=== PATIENT | female | born 1960 | race African-American/Black ===

== ENCOUNTER 2016-07-15 16:19 | Observation (INO) | payer OTHER ==
[~2016-07-15] VITALS: Ht 172.7 cm; Wt 70.0 kg
[2016-07-15 16:21] VITALS: BP 173/104; PULSE 92; RESP 20; TEMP 97.7; O2SAT 96
--- NOTE | 2016-07-15 17:33 | PD ---
HPI Chief Complaint: Cold / Flu Symptoms Time Seen by Provider: 17:28 Travel History International Travel<30 days: No Contact w/Intl Traveler<30days: No Traveled to known affect area: No History of Present Illness HPI This Is a 55-year-old female with history of hypertension who presents for evaluation of dyspnea and cough. She reports that for the past month she has had increasing dyspnea on exertion and paroxysmal nocturnal dyspnea. Symptoms haven't worsened which prompted evaluation. She does endorse a cough with occasional sputum production and she feels that she may sometimes be wheezing as well. She reports that in the past and x-ray showed a "enlarged heart" however she has never been diagnosed with CHF and she has never had an echocardiogram. She denies any lower extremity edema, chest pain, fevers or chills, abdominal pain. She reports that she's been out of her lisinopril for the past few months. She has no other complaints. PFSH Past Medical History Cancer: No Cardiovascular Problems: Yes (possible enlarged heart) Diabetes: No Endocrine: No Genitourinary: No Hepatitis: No Hiatal Hernia: No Immune Disorder: No Musculoskeletal: No Neurologic: No Psychiatric: No Reproductive: No Respiratory: No Thyroid Disease: No Past Surgical History Abdominal Surgery: No AICD: No Cardiac Surgery: No Ear Surgery: No Endocrine Surgery: No Eye Surgery: No Genitourinary Surgery: No Gynecologic Surgery: Yes () Joint Replacement: No Oral Surgery: No Pacemaker: No Thoracic Surgery: No Social History Alcohol Use: Yes Tobacco Use: Yes Allergies-Medications (Allergen,Severity, Reaction): Coded Allergies: Sulfa (Verified Allergy, Severe, 07/15/16) Reported Meds & Prescriptions Reported Meds & Active Scripts Active No Active Prescriptions or Reported Medications Review of Systems Except as stated in HPI: all other systems reviewed are Neg Physical Exam Narrative GENERAL: Pleasant well-developed well-nourished female in no acute distress SKIN: Warm and dry. HEAD: Atraumatic. Normocephalic. EYES: Pupils equal and round. No scleral icterus. No injection or drainage. ENT: No nasal bleeding or discharge. Mucous membranes pink and moist. NECK: Trachea midline. No JVD. CARDIOVASCULAR: Regular rate and rhythm. No murmur appreciated. RESPIRATORY: No accessory muscle use. Slight wheezing in the upper airways. No crackles. GASTROINTESTINAL: Abdomen soft, non-tender, nondistended. Hepatic and splenic margins not palpable. MUSCULOSKELETAL: No obvious deformities. No edema. NEUROLOGICAL: Awake and alert. No obvious cranial nerve deficits. Motor grossly within normal limits. Normal speech. Data Data Last Documented VS Vital Signs Date Time Temp Pulse Resp B/P Pulse Ox O2 Delivery O2 Flow Rate FiO2 07/15/16 16:21 97.7 92 20 173/104 96 Room Air Orders Electrocardiogram (07/15/16 17:33) Basic Metabolic Panel (Bmp) (07/15/16 17:33) B-Type Natriuretic Peptide (07/15/16 17:33) Ckmb (Isoenzyme) Profile (07/15/16 17:33) Complete Blood Count With Diff (07/15/16 17:33) Magnesium (Mg) (07/15/16 17:33) Troponin I (07/15/16 17:33) Chest, Single Ap (07/15/16 17:33) Ecg Monitoring (07/15/16 17:33) Iv Access Insert/Monitor (07/15/16 17:33) Oximetry (07/15/16 17:33) Oxygen Administration (07/15/16 17:33) Sodium Chloride 0.9% Flush (Ns Flush) (07/15/16 17:45) Albuterol-Ipratropium Neb (Duoneb Neb) (07/15/16 17:45) Potassium Chloride (Kcl) (07/15/16 20:00) Labs Laboratory Tests Test 07/15/16 19:00 White Blood Count 4.0 TH/MM3 Red Blood Count 4.40 MIL/MM3 Hemoglobin 13.4 GM/DL Hematocrit 38.3 % Mean Corpuscular Volume 87.0 FL Mean Corpuscular Hemoglobin 30.3 PG Mean Corpuscular Hemoglobin 34.9 % Concent Red Cell Distribution Width 14.6 % Platelet Count 172 TH/MM3 Mean Platelet Volume 9.6 FL Neutrophils (%) (Auto) 54.8 % Lymphocytes (%) (Auto) 34.8 % Monocytes (%) (Auto) 8.8 % Eosinophils (%) (Auto) 0.7 % Basophils (%) (Auto) 0.9 % Neutrophils # (Auto) 2.2 TH/MM3 Lymphocytes # (Auto) 1.4 TH/MM3 Monocytes # (Auto) 0.4 TH/MM3 Eosinophils # (Auto) 0.0 TH/MM3 Basophils # (Auto) 0.0 TH/MM3 CBC Comment DIFF FINAL Differential Comment Sodium Level 141 MEQ/L Potassium Level 2.8 MEQ/L Chloride Level 100 MEQ/L Carbon Dioxide Level 30.8 MEQ/L Anion Gap 10 MEQ/L Blood Urea Nitrogen 14 MG/DL Creatinine 0.97 MG/DL Estimat Glomerular Filtration 72 ML/MIN Rate Random Glucose 104 MG/DL Calcium Level 8.7 MG/DL Magnesium Level 1.5 MG/DL Total Creatine Kinase 100 U/L Troponin I 0.02 NG/ML B-Type Natriuretic Peptide 556 PG/ML MDM Medical Decision Making Medical Screen Exam Complete: Yes Emergency Medical Condition: Yes Medical Record Reviewed: Yes Interpretation(s) Chest x-ray reveals cardiomegaly without acute process Differential Diagnosis New onset CHF versus bronchitis versus pneumonia versus pneumothorax versus COPD versus pulmonary embolism Narrative Course 55-year-old female hypertension presents with 1 month of progressive dyspnea on exertion, nocturnal dyspnea as well as a cough. Denies chest pain. On initial examination she has mild wheezing. She has no peripheral edema. Plan is for basic lab work, chest x-ray, EKG. Her lab work and imaging studies have been reviewed. Hypokalemic at 2.8, given oral potassium supplementation. The TAG MAKER elevated in the 500s suggestive of new onset CHF. Discussed with my attending who agrees with plan of care. Plan is to admit the patient for observation. Patient is agreeable. Discussed with Dr. Staples who is agreeable. Procedures EKG Prior to Arrival: Yes Diagnosis Primary Impression: FORD (dyspnea on exertion) Additional Impressions: Elevated brain natriuretic peptide (BNP) level Hypokalemia Admitting Information Admitting Physician Requests: Observation Scripts No Active Prescriptions or Reported Meds Toni Washburn Jul 15, 2016 17:33
[2016-07-15] MEDS ORDERED: RESP: ALBUTEROL 2.5 MG/IPRATROPIUM 0.5 MG NEB (SCH) INH ONE (17:45)
[2016-07-15] MEDS ORDERED: SODIUM CHLORIDE 0.9% FLUSH 5 ML FLUSH IVF PRN (17:45)
--- NOTE | 2016-07-15 18:14 | RADRPT ---
EXAM DATE/TIME: 07/15/2016 17:42 [facility] COMPARISON: No previous studies available for comparison. INDICATIONS : Short of breath. MEDICAL HISTORY : None. SURGICAL HISTORY : None. ENCOUNTER: Initial ACUITY: 1 month PAIN SCORE: 3/10 LOCATION: Bilateral chest FINDINGS: A single view of the chest demonstrates the lungs to be symmetrically aerated without evidence of mas s, infiltrate or effusion. The heart size is enlarged. Osseous structures are intact. CONCLUSION: Cardiomegaly Ortega Carrion MD on July 15, 2016 at 18:12 Board Certified Radiologist. This report was verified electronically.
[2016-07-15 19:15] LABS: AUTOMATED NEUTROPHIL # 2.2 TH/MM3 (1.8-7.7); BASOPHIL % 0.9 % (0.0-2.0); EOSINOPHIL % 0.7 % (0.0-4.0); HEMATOCRIT 38.3 % (35.0-46.0); HEMO FLAGS DIFF FINAL; LYMPH % 34.8 % (9.0-44.0); LYMPHOCYTE # 1.4 TH/MM3 (1.0-4.8); MEAN CORPUSCULAR HEMOGLOBIN 30.3 PG (27.0-34.0); MEAN CORPUSCULAR HGB CONC 34.9 % (32.0-36.0); MONO % 8.8 % (0.0-8.0); NEUT % 54.8 % (16.0-70.0); PLATELET COUNT 172 TH/MM3 (150-450); RED CELL DISTRIBUTION WIDTH 14.6 % (11.6-17.2)
[2016-07-15 19:41] LABS: BICARBONATE 30.8 MEQ/L (21.0-32.0); MAGNESIUM 1.5 MG/DL (1.5-2.5)
[2016-07-15 19:42] LABS: POTASSIUM 2.8 MEQ/L (3.5-5.1)
[2016-07-15] MEDS ORDERED: POTASSIUM CHLORIDE 10 MEQ CONTROLLED RELEASE TAB PO ONE (20:00)
[2016-07-15] MEDS ORDERED: ACETAMINOPHEN/HYDROcodone 325 MG/5 MG TAB PO PRN (21:30)
[2016-07-15] MEDS ORDERED: ACETAMINOPHEN 325 MG TAB PO PRN (21:30)
[2016-07-15] MEDS ORDERED: RESP: ALBUTEROL 2.5 MG/IPRATROPIUM 0.5 MG NEB (PRN) NEB (21:30)
[2016-07-15] MEDS ORDERED: ONDANSETRON HCL 4 MG/2 ML VIAL IVP PRN (21:30)
[2016-07-15] MEDS ORDERED: BISACODYL 10 MG SUPP PR PRN (21:30)
[2016-07-15] MEDS ORDERED: SODIUM CHLORIDE 0.9% FLUSH 5 ML FLUSH FLUSH PRN (21:30)
--- NOTE | 2016-07-15 21:38 | HHI.HP ---
HPI Service [facility] Primary Care Physician Unknown Admission Diagnosis dyspnea on exertion, elevated BNP Diagnoses: (1) CHF (congestive heart failure) Diagnosis: Principal (2) HTN (hypertension) Diagnosis: Principal (3) Hypokalemia Diagnosis: Principal (4) Tobacco abuse Diagnosis: Principal Travel History International Travel<30 Days: No Contact w/Intl Traveler <30 Da: No Traveled to Known Affected Are: No History of Present Illness This is a 55-year-old female with a PMH of HTN who presents to the ER with complaints of SOB and nonproductive cough x1 month. Denies fever, chills or chest pain. States she only takes Lisinopril at home, but has been off meds x3 months due to financial reasons. On arrival, BP 168/104, HR 95, O2 sat 98% on RA, Afebrile. CBC essentially unremarkable. K+ 2.8. GFR 72. BNP 556. CXR with cardiomegaly. S/p K+ replacement and DuoNeb w/ some improvement in SOB. Review of Systems Except as stated in HPI: all other systems reviewed are Neg ROS: 14 point review of systems otherwise negative. Past Family Social History Past Medical History PMH: HTN Past Surgical History PAST SURGICAL HISTORY: Allergies: Coded Allergies: Sulfa (Verified Allergy, Severe, 07/15/16) Family History PAST FAMILY HISTORY: Reviewed. No h/o DM or CAD Social History PAST SOCIAL HISTORY: Occasional alcohol. Positive for tobacco abuse. Negative for drugs. Physical Exam Vital Signs Vital Signs Date Time Temp Pulse Resp B/P Pulse Ox O2 Delivery O2 Flow Rate FiO2 07/15/16 16:21 97.7 92 20 173/104 96 Room Air Physical Exam PE: GENERAL: Middle-aged female in no acute distress. HEENT: PERRLA, EOMI. No scleral icterus or conjunctival pallor. No lid lag or facial droop. CARDIOVASCULAR: Regular rate and rhythm. No obvious murmurs to auscultation. No chest tenderness to palpation. RESPIRATORY: No obvious rhonchi, occasional wheezing otherwise clear to auscultation. Breath sounds equal bilaterally. GASTROINTESTINAL: Abdomen soft, non-tender, nondistended. BS normal. MUSCULOSKELETAL: Extremities without clubbing, cyanosis, or edema. No obvious deformities. NEUROLOGICAL: Awake, alert and oriented x4. No focal neurologic deficits. Moving both upper and lower extremities spontaneously. Laboratory Laboratory Tests Test 07/15/16 19:00 White Blood Count 4.0 Red Blood Count 4.40 Hemoglobin 13.4 Hematocrit 38.3 Mean Corpuscular Volume 87.0 Mean Corpuscular Hemoglobin 30.3 Mean Corpuscular Hemoglobin 34.9 Concent Red Cell Distribution Width 14.6 Platelet Count 172 Mean Platelet Volume 9.6 Neutrophils (%) (Auto) 54.8 Lymphocytes (%) (Auto) 34.8 Monocytes (%) (Auto) 8.8 Eosinophils (%) (Auto) 0.7 Basophils (%) (Auto) 0.9 Neutrophils # (Auto) 2.2 Lymphocytes # (Auto) 1.4 Monocytes # (Auto) 0.4 Eosinophils # (Auto) 0.0 Basophils # (Auto) 0.0 CBC Comment DIFF FINAL Differential Comment Sodium Level 141 Potassium Level 2.8 Chloride Level 100 Carbon Dioxide Level 30.8 Anion Gap 10 Blood Urea Nitrogen 14 Creatinine 0.97 Estimat Glomerular Filtration 72 Rate Random Glucose 104 Calcium Level 8.7 Magnesium Level 1.5 Total Creatine Kinase 100 Troponin I 0.02 B-Type Natriuretic Peptide 556 Result Diagram: 07/15/16189907/15/161899 Assessment and Plan Problem List: (1) CHF (congestive heart failure) ICD Code: I50.9 Status: Acute (2) Hypokalemia ICD Code: E87.6 Status: Acute (3) HTN (hypertension) ICD Code: I10 Status: Acute (4) Tobacco abuse ICD Code: Z72.0 Status: Acute Assessment and Plan A/P: 1. CHF: Suspected CHF, New Onset. BNP 556. CXR w/ cardiomegaly, images reviewed by me. No evidence of fluid overload on exam. Progressive SOB x1 month w/ associated non-productive cough. Initial trop negative, EKG w/ no acute findings. Admit for Observation, telemetry, check serial cardiac enzymes to eval for underlying ischemia. Check Echo. Start Lisinopril, B-sheldon, ASA , Statin. Check lipid profile, TSH, Hgb A1c. 2. Hypokalemia: K+ 2.8, s/p replacement in ER. Recheck labs and replace in am as needed. 3. HTN: BP 160-170's systolic on arrival, currently 130's systolic. Non- compliant w/ meds, off Lisinopril x3 months due to financial reasons. Monitor BP. 4. Tobacco Abuse: Counselled. Ativan prn if needed. 5. DVT Prophylaxis: SCD/Teds. 6. Social work for d/c planning as needed. 7. Case discussed w/ ER physician at length. Daylin Staples MD Jul 15, 2016 21:38
[2016-07-15 22:45] VITALS: BP 131/105; PULSE 88; RESP 20; O2SAT 96
[2016-07-15] MEDS: METOPROLOL TARTRATE 25 MG TAB PO SCH (22:46)
[2016-07-16] VITALS (9 sets, daily range): BP systolic 130–163; BP diastolic 80–102; PULSE 84–93; RESP 16–21; TEMP 97.7–98.8; O2SAT 92–99
[2016-07-16 04:30] LABS: AUTOMATED NEUTROPHIL # 2.2 TH/MM3 (1.8-7.7); BASOPHIL % 0.7 % (0.0-2.0); EOSINOPHIL # 0.1 TH/MM3 (0-0.4); EOSINOPHIL % 1.4 % (0.0-4.0); HEMATOCRIT 37.2 % (35.0-46.0); HEMO FLAGS DIFF FINAL; LYMPH % 26.9 % (9.0-44.0); MEAN CELL VOLUME 87.6 FL (80.0-100.0); MEAN CORPUSCULAR HEMOGLOBIN 30.3 PG (27.0-34.0); MEAN CORPUSCULAR HGB CONC 34.6 % (32.0-36.0); MONO % 10.5 % (0.0-8.0); NEUT % 60.5 % (16.0-70.0); PLATELET COUNT 168 TH/MM3 (150-450); RED BLOOD COUNT 4.25 MIL/MM3 (4.00-5.30); RED CELL DISTRIBUTION WIDTH 15.1 % (11.6-17.2); WHITE BLOOD COUNT 3.6 TH/MM3 (4.0-11.0)
[2016-07-16 04:37] LABS: ALT (GPT) 91 U/L (10-53); ANION GAP 8 MEQ/L (5-15); AST (GOT) 41 U/L (15-37); BICARBONATE 29.6 MEQ/L (21.0-32.0); BLOOD UREA NITROGEN 15 MG/DL (7-18); CHLORIDE 106 MEQ/L (98-107); GLOMERULAR FILTRATION RATE 76 ML/MIN (>89); POTASSIUM 3.1 MEQ/L (3.5-5.1); SODIUM (NA) 144 MEQ/L (136-145)
[2016-07-16 04:47] LABS: ALKALINE PHOSPHATASE 81 U/L (45-117); HDL CHOLESTEROL 47.4 MG/DL (40.0-60.0); LDL CHOLESTEROL 86 MG/DL (0-99); TOTAL BILIRUBIN ADULT 0.7 MG/DL (0.2-1.0)
[2016-07-16] MEDS ORDERED: POTASSIUM CHLORIDE 20 MEQ CONTROLLED RELEASE TAB PO ONE (08:00)
[2016-07-16] MEDS: MAGNESIUM SULFATE 1 GM PREMIX 100 ML IV SCH ×2 (08:33→13:01)
[2016-07-16] MEDS: ASPIRIN EC 81 MG TABEC PO SCH (08:34)
[2016-07-16] MEDS: LISINOPRIL 5 MG TAB PO SCH (08:34)
[2016-07-16] MEDS: SODIUM CHLORIDE 0.9% FLUSH 5 ML FLUSH FLUSH SCH ×2 (08:35→20:10)
[2016-07-16] MEDS ORDERED: FUROSEMIDE 20 MG TAB PO SCH (09:00)
[2016-07-16] MEDS ORDERED: PRAVASTATIN SOD 40 MG TAB PO SCH (09:00)
[2016-07-16] MEDS: METOPROLOL TARTRATE 25 MG TAB PO SCH ×2 (11:17→20:10)
--- NOTE | 2016-07-16 13:40 | EKG ---
Date Performed: 07/15/2016 Time Performed: 19:12:55 PTAGE: 55 years EKG: Sinus rhythm WITH FREQUENT VENTRICULAR PREMATURE COMPLEXES POSSIBLE RIGHT ATRIAL ENLARGEMENT LEFT ATRIAL ENLARGEM ENT LEFT ANTERIOR FASCICULAR BLOCK LEFT VENTRICULAR HYPERTROPHY AND ST-T CHANGE POSSIBLE ANTERIOR JASPAL CARDIAL INFARCTION RATE HAS INCREASED, OTHERWISE, LARGELY UNCHANGED FROM PRIOR TRACING CLINICAL CORRE LATION RECOMMENDED. ABNORMAL ECG PREVIOUS TRACING : 07/15/2016 14.24 DOCTOR: Nabil Avendano Interpretating Date/Time 07/16/2016 13:39:07
--- NOTE | 2016-07-16 13:46 | HHI.PR ---
Subjective Remarks Follow-up for probable new onset CHF. The patient states that for the past month she's been having symptoms of shortness of breath, worsening swelling, dyspnea on exertion, cough, orthopnea. She denies any chest pain. She does report about a 10 year history of uncontrolled hypertension. She states her blood pressure normally runs about 154/90. She had been on lisinopril, but actually ran medicine a few weeks ago. She denies any alcohol, tobacco, or illegal drug use. Symptoms have improved overnight since admission. Objective Vitals Vital Signs Date Time Temp Pulse Resp B/P Pulse Ox O2 Delivery O2 Flow Rate FiO2 07/16/16 11:29 88 20 130/84 96 07/16/16 08:32 98.1 88 20 163/102 95 Room Air 07/16/16 06:43 88 16 146/100 99 Room Air 07/16/16 03:10 91 18 137/95 97 Room Air 07/15/16 22:45 88 20 131/105 96 Room Air 07/15/16 16:21 97.7 92 20 173/104 96 Room Air Result Diagram: 07/16/16 0357 07/16/16 0357 Imaging Last Impressions Chest X-Ray 07/15/16 173 Signed Impressions: Service Date/Time: June 17:42 - CONCLUSION: Cardiomegaly Ortega Carrion MD Objective Remarks GENERAL: Well-developed well-nourished. In no acute distress. SKIN: Warm and dry. No lesions noted. HEENT: Normocephalic. Pupils equal and round. Mucous membranes pink and moist. CARDIOVASCULAR: Regular rate and rhythm. No murmur appreciated. RESPIRATORY: No accessory muscle use. Clear to auscultation. Fair air entry bilaterally. GASTROINTESTINAL: Abdomen soft, non-tender, nondistended. Bowel sounds x4. MUSCULOSKELETAL: No obvious deformities. No clubbing or cyanosis. No edema. NEUROLOGICAL: Awake and alert. No focal neurological deficits. Moves upper and lower extremities spontaneously. Normal speech. PSYCHIATRIC: Appropriate mood and affect; insight and judgment normal. A/P Problem List: (1) CHF (congestive heart failure) ICD Code: I50.9 Status: Acute (2) Hypokalemia ICD Code: E87.6 Status: Acute (3) HTN (hypertension) ICD Code: I10 Status: Acute (4) Tobacco abuse ICD Code: Z72.0 Status: Acute Assessment and Plan 55-year-old female with a PMH of HTN who presents with progressive SOB Suspected new onset CHF: No prior history. BNP 556, 724. CXR w/ cardiomegaly, no definite edema, personally reviewed. Troponin negative 3. EKG w/ no acute findings. Check echocardiogram. Start Lasix 20 mg daily. Started overnight on Lisinopril, B-sheldon, ASA. Cardiology consulted. Lipid profile within normal limits. Hypokalemia: K+ 2.8, s/p oral replacement in the ED. Test remains 3.1 today, given additional oral replacement. Magnesium 1.5 given IV replacement. Follow- up BMP. HTN: Uncontrolled. Non-compliant w/ meds, off Lisinopril x3 months due to financial reasons. Started lisinopril and metoprolol as above. Monitor BP. DVT Prophylaxis: SCD/Teds. Written by Emir Cruz, acting as scribe for Dr. Loja on 07/16/16 at 13:46. The documentation accurately reflects the work performed [id number] by me on at 13:46. Emir Cruz Jul 16, 2016 1:46 pm Carlos Loja DO Jul 16, 2016 3:40 pm
[2016-07-16 14:38] LABS: HEMOGLOBIN A1a 1.3 %; HEMOGLOBIN A1b 0.5 %; HEMOGLOBIN Ao 54.6 %; HEMOGLOBIN F 0.9 %; HEMOGLOBIN LA1C 1.1 %; HEMOGLOBIN P3 2.3 %
[2016-07-16] MEDS ORDERED: FUROSEMIDE 20 MG/2 ML VIAL IV PUSH ONE (16:30)
--- NOTE | 2016-07-16 16:41 | MB ---
cc: HERBERT ESTEVEZ DO DATE OF CONSULTATION: 07/16/2016. REASON FOR CONSULTATION: New onset congestive heart failure. HISTORY OF PRESENT ILLNESS: Olivia Galvez is a pleasant 55-year-old female who presented to the [facility] on July 15, 2016 due to shortness of breath with a nonproductive cough for one month. She denies fevers, chills or chest pain. She previously took lisinopril at home but has been off the medication for around three months due to financial reasons. She states that she has had known hypertension for least. She has had uncontrolled hypertension for least ten years. She has also noticed swelling in her legs since being diagnosed with hypertension. Lately she has been noticing dyspnea on exertion and some orthopnea. PAST MEDICAL HISTORY: Hypertension. PAST SURGICAL HISTORY: . ALLERGIES: SULFA. MEDICATIONS: Previously on lisinopril but it was stopped due to financial reasons. 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 Rarely uses alcohol. Denies drug abuse. Positive for tobacco use. FAMILY HISTORY: Denies premature coronary artery disease or sudden cardiac within the family. PHYSICAL EXAMINATION: VITAL SIGNS: Temperature 97.9, heart rate 89, blood pressure 130/80, respirations 16, pulse ox 94% on room air. GENERAL: In general, the patient appears well. No acute distress, alert, awake and oriented x3. HEAD, EYES, EARS, NOSE, THROAT: Extraocular muscles intact. Mucous membranes moist. NECK: Neck is supple. Mild JVD noted bilaterally. No carotid bruits noted bilaterally. Carotid upstroke is brisk in nature. HEART: Heart is regular rate and rhythm. Positive first and second heart sounds with no murmurs, gallops or rubs. PMI is displaced laterally. LUNGS: Lungs have decreased breath sounds bilaterally with mild rales at the bases. ABDOMEN: The abdomen is soft, nontender and nondistended. No organomegaly noted. EXTREMITIES: Show trace edema bilaterally. NEUROLOGIC: No focal deficits. SKIN: Warm, dry and intact. OSTEOPATHIC: Osteopathically no kyphoscoliosis, lordosis or paraspinal tender points. LABORATORY FINDINGS: Hemoglobin 12.9, hematocrit 37.2, platelets 168,000. Potassium 3.1, BUN 15, creatinine 0.92. Troponin negative x3. BNP 724. EKGS: Electrocardiogram (July 15, 2016 at 1912): Sinus rhythm, PVCs, possible right atrial enlargement, left atrial enlargement, left anterior fascicular block, left ventricular hypertrophy with secondary ST-T wave changes, possible anterior myocardial infarction versus lead placement versus normal variant. IMPRESSION: 1. New-onset acute heart failure. 2. Longstanding uncontrolled hypertension. 3. Tobacco abuse. RECOMMENDATIONS: 1. A 2-D echo is pending at this time but brief look at it shows that the patient has a decrease in her ejection fraction with acute systolic heart failure. 2. Due to this, we will plan on setting her up for a pharmacologic nuclear stress test in the morning. 3. I feel that her acute systolic heart failure is most likely due to dilated cardiomyopathy due to longstanding hypertension. 4. I did speak to her for greater than three minutes about tobacco cessation, which she is attempting to quit. 5. She does appear to need further diuresis and will plan on placing her on IV Lasix. We will most likely change her metoprolol tartrate to Toprol XL upon discharge. 6. Agree with continuing LISA inhibitor therapy. Further recommendations will be made after pharmacologic nuclear stress test in the morning. Thank you for allowing me to see Olivia Galvez. If there are any questions, please do not hesitate to call. Herbert Estevez DO VGP/JCC /4:09 PM /4:29 PM
--- NOTE | 2016-07-16 20:01 | EC ---
Study Study Date:07/16/2016 STUDY CONCLUSIONS SUMMARY - Left ventricle: The cavity size was mildly dilated. Wall thickness was increased in a pattern of mild LVH. There was concentric hypertrophy. Systolic function was moderately to severely reduced. The estimated ejection fraction was in the range of 35% to 40%. Diffuse hypokinesis. - Mitral valve: Moderate regurgitation. - Tricuspid valve: Mild regurgitation. - Pulmonic valve: Mild regurgitation. - Pulmonary arteries: PA peak pressure: 34mm Hg (S). If LV function is below 40, please consider prescribing an ACEI or ARB or document rationale for non-use. PROCEDURE DATA STUDY STATUS: Elective. Procedure: Transthoracic echocardiography. Image quality was good. Scanning was performed from the parasternal, apical, and subcostal acoustic windows. Study completion: The patient tolerated the procedure well. Transthoracic echocardiography. M-mode, complete 2D, complete spectral Doppler, and color Doppler. Height: Height: 68in. Weight: Weight: 153.7lb. Body mass index: BMI: 23.4kg/m^2. Body surface area: BSA: 1.83m^2. Patient status: Inpatient. CARDIAC ANATOMY LEFT VENTRICLE: The cavity size was mildly dilated. Wall thickness was increased in a pattern of mild LVH. There was concentric hypertrophy. Systolic function was moderately to severely reduced. The estimated ejection fraction was in the range of 35% to 40%. Diffuse hypokinesis. AORTIC VALVE: The valve appears to be grossly normal. Doppler: There was no stenosis. No significant regurgitation. Valve area: 4.06cm^2 (Vmax). Indexed valve area: 2.22cm^2/m^2 (Vmax). MITRAL VALVE: The valve appears to be grossly normal. Doppler: There was no evidence for stenosis. Moderate regurgitation. Peak gradient: 3mm Hg (D). LEFT ATRIUM: The atrium was at the upper limits of normal in size. RIGHT VENTRICLE: The cavity size was normal. PULMONIC VALVE: Poorly visualized. Doppler: There was no evidence for stenosis. Mild regurgitation. TRICUSPID VALVE: The valve appears to be grossly normal. Doppler: There was no evidence for stenosis. Mild regurgitation. PERICARDIUM: There was no pericardial effusion. Patient weight: 153.7lb _Ejection fraction:_ 65-75% _Fractional shortening:_ 32% up to 5Kg 5-11.5Kg 11.6-22.9Kg 23-45Kg 45-57Kg Aortic Root 7-13 <17 13-22 17-27 17-27 LA diam 6-13 <23 24-38 33-47 37-40 RVID 10-17 7-15 7-15 7-18 8-17 LVIDd 12-22 <32 24-38 33-47 37-40 LVPW 2-4 3-6 5-7 6-8 7-8 IVS 2-4 3-6 5-7 6-8 7-8 BASIC MEASUREMENTS ADULT NORMAL Left ventricle LV internal dimension, ED, chordal *59.4 mm 43-52 level, PLAX LV internal dimension, ES, chordal *49.4 mm 23-38 level, PLAX Fractional shortening, chordal level, *17 % >29 PLAX LV posterior wall thickness, ED 8.46 mm IVS/LVPW ratio, ED 0.97 <1.3 Ventricular septum Septal thickness, ED 8.22 mm Aortic valve Leaflet separation 15 mm 15-26 BASIC MEASUREMENTS ADULT NORMAL Aortic valve Leaflet separation 15 mm 15-26 Aorta Root diameter, ED *19 mm 20-37 Left atrium Anterior-posterior dimension, ES 35 mm 19-40 Anterior-posterior dimension index, ES 1.91 cm/m^2 <2.2 LA/aortic root ratio 1.84 DOPPLER MEASUREMENTS ADULT NORMAL Main pulmonary artery Pressure, S *34 mm Hg =30 Pressure, ED 15 mm Hg Aortic valve Peak velocity, S 102 cm/s Valve area, Vmax 4.06 cm^2 Valve area index, Vmax 2.22 cm^2/m^2 Mitral valve Peak E-wave velocity 80.5 cm/s Peak A-wave velocity 44.4 cm/s Deceleration time *127 ms 150-230 Peak gradient, D 3 mm Hg Peak E/A ratio 1.8 Maximal regurgitant velocity 456 cm/s Tricuspid valve Regurgitant peak velocity 258 cm/s Peak RV-RA gradient, S 27 mm Hg Maximal regurgitant velocity 258 cm/s Systemic veins Estimated CVP 10 mm Hg Right ventricle RV pressure, S *37 mm Hg <30 Pulmonic valve Peak velocity, S 85.6 cm/s Regurgitant velocity, ED 114 cm/s LEGEND: Mean values are shown as u=mean value. Asterisk (*) redmond values outside specified normal range. Prepared and signed by Herbert Lara [id number]
[2016-07-16] MEDS: ACETAMINOPHEN/HYDROcodone 325 MG/10 MG TAB PO PRN (20:10)
[2016-07-17] VITALS (7 sets, daily range): BP systolic 101–154; BP diastolic 75–103; PULSE 68–93; RESP 18–21; TEMP 97.4–98.8; O2SAT 94–99
[2016-07-17 06:32] LABS: BICARBONATE 30.9 MEQ/L (21.0-32.0); MAGNESIUM 1.8 MG/DL (1.5-2.5); POTASSIUM 3.3 MEQ/L (3.5-5.1)
[2016-07-17] MEDS: SODIUM CHLORIDE 0.9% FLUSH 5 ML FLUSH FLUSH SCH ×2 (10:22→21:20)
[2016-07-17] MEDS: ASPIRIN EC 81 MG TABEC PO SCH (10:22)
[2016-07-17] MEDS: ACETAMINOPHEN/HYDROcodone 325 MG/10 MG TAB PO PRN ×2 (10:22→21:25)
[2016-07-17] MEDS: METOPROLOL TARTRATE 25 MG TAB PO SCH (10:23)
[2016-07-17] MEDS: LISINOPRIL 5 MG TAB PO SCH (10:23)
[2016-07-17] MEDS: FUROSEMIDE 20 MG/2 ML VIAL IV PUSH SCH (10:23)
[2016-07-17] MEDS ORDERED: REGADENOSON INJ 0.4 MG/5 ML SYR ONE (11:41)
[2016-07-17] MEDS ORDERED: POTASSIUM CHLORIDE 20 MEQ CONTROLLED RELEASE TAB PO ONE (12:15)
--- NOTE | 2016-07-17 12:27 | PD.CARD.PN ---
Subjective Subjective Remarks No chest pain, decreased shortness of breath Objective Medications Current Medications Medications (Trade) Dose Ordered Sig/Kellen Route Start Time Stop Time Status Last Admin (NS Flush) 2 ml UNSCH PRN FLUSH 07/15/16 21:30 (NS Flush) 2 ml BID FLUSH 07/16/16 09:00 07/17/16 10:22 (Zofran Inj) 4 mg Q6H PRN IVP 07/15/16 21:30 (Dulcolax Supp) 10 mg DAILY PRN [place] 07/15/16 21:30 (Tylenol) 650 mg Q6H PRN PO 07/15/16 21:30 (Viola 5-325 Mg) 1 tab Q4H PRN PO 07/15/16 21:30 07/16/16 06:47 (Viola 10-325 Mg) 1 tab Q4H PRN PO 07/15/16 21:30 07/17/16 10:22 (Lopressor) 25 mg Q12HR PO 07/15/16 21:30 07/17/16 10:23 (Prinivil) 5 mg DAILY PO 07/16/16 09:00 07/17/16 10:23 (Ecotrin Ec) 81 mg DAILY PO 07/16/16 09:00 07/17/16 10:22 (Lasix Inj) 20 mg DAILY IV PUSH 07/17/16 09:00 07/17/16 10:23 (KCl) 20 meq DAILY PO 07/18/16 09:00 Vital Signs / I&O Vital Signs Date Time Temp Pulse Resp B/P Pulse Ox O2 Delivery O2 Flow Rate FiO2 07/17/16 07:48 97.4 89 20 154/103 94 07/17/16 00:27 98.8 68 18 125/90 98 07/16/16 20:24 98.8 84 21 142/93 94 07/16/16 20:00 93 07/16/16 16:10 90 07/16/16 15:34 97.9 89 16 130/80 94 Physical Exam GENERAL: NAD, AAOx3 SKIN: Warm and dry. HEAD: Atraumatic. Normocephalic. EYES: Pupils equal and round. No scleral icterus. No injection or drainage. ENT: No nasal bleeding or discharge. Mucous membranes pink and moist. NECK: Trachea midline. Minimal JVD CARDIOVASCULAR: Regular rate and rhythm. RESPIRATORY: No accessory muscle use. Relatively clear to auscultation GASTROINTESTINAL: Abdomen soft, non-tender, nondistended. Hepatic and splenic margins not palpable. MUSCULOSKELETAL: Extremities without clubbing, cyanosis, or edema. No obvious deformities. NEUROLOGICAL: Awake and alert. No obvious cranial nerve deficits. Motor grossly within normal limits. Five out of 5 muscle strength in the arms and legs. Normal speech. PSYCHIATRIC: Appropriate mood and affect; insight and judgment normal. Laboratory Laboratory Tests Test 07/17/16 05:50 Sodium Level 142 MEQ/L Potassium Level 3.3 MEQ/L Chloride Level 104 MEQ/L Carbon Dioxide Level 30.9 MEQ/L Anion Gap 7 MEQ/L Blood Urea Nitrogen 18 MG/DL Creatinine 0.90 MG/DL Estimat Glomerular Filtration 78 ML/MIN Rate Random Glucose 100 MG/DL Calcium Level 8.5 MG/DL Magnesium Level 1.8 MG/DL Assessment and Plan Problem List: (1) CHF (congestive heart failure) (2) HTN (hypertension) (3) FORD (dyspnea on exertion) (4) Elevated brain natriuretic peptide (BNP) level (5) Tobacco abuse Assessment and Plan 1) New acute systolic heart failure, EF 35-40% 2) Appears to be dilated cardiomyopathy from long standing HTN, diagnosed with HTN 10 years ago 3) Stress test today, if positive will most likely need cardiac catheterization to rule out significant CAD as a cause If negative, cardiovascularly stable for discharge 4) Tobacco cessation Herbert Lara DO Jul 17, 2016 12:27
--- NOTE | 2016-07-17 13:11 | RADRPT ---
EXAM DATE/TIME: 07/17/2016 11:07 [facility] COMPARISON: No previous studies available for comparison. INDICATIONS : Shortness of breath with slight chest discomfort for one month. Congestive heart failure. DOSE: 25.8 mCi Tc99m Myoview at stress. 8.6 mCi Tc99m Myoview at rest. 0.4 mg Lexiscan STRESS SYMPTOMS: Nausea. EJECTION FRACTION: 19% MEDICAL HISTORY : Hypertension. SURGICAL HISTORY : section. ENCOUNTER: Initial ACUITY: 1 month PAIN SCALE: 1/10 LOCATION: Midsternal chest TECHNIQUE: The patient underwent pharmacologic stress with infusion of prescribed dose. Continuous ECG tracing was monitored during stress. Gated SPECT imaging was performed after stress and conventional SPECT i maging was performed at rest. The examination was performed on a SPECT/CT scanner, both attenuation and non-corrected datasets were reviewed. FINDINGS: DISTRIBUTION: The maximum perfused segment at stress is in the anterior wall. PERFUSION STUDY: The pattern of perfusion at stress is within normal limits. GATED STUDY: There is left ventricular distention and global hypokinesia. CONCLUSION: Markedly distended and hypokinetic left ventricle. Calculated ejection fraction substantially abnorma l at 19%. No stress-induced ischemia seen. RISK CATEGORY: Intermediate Ortega Zayas MD on July 17, 2016 at 13:08 Board Certified Radiologist. This report was verified electronically.
[2016-07-17] MEDS: CARVEDILOL 6.25 MG TAB PO SCH (21:20)
--- NOTE | 2016-07-17 21:28 | HHI.PR ---
Subjective Remarks Follow up for new onset CHF. Ms. Galvez is doing much better. She reports significant improvement of her symptoms including dyspnea and lower ext edema. Denies any CP, SOB, fever, chills. Objective Vitals Vital Signs Date Time Temp Pulse Resp B/P Pulse Ox O2 Delivery O2 Flow Rate FiO2 07/17/16 20:03 98.0 83 21 120/75 98 07/17/16 17:23 82 07/17/16 15:45 97.6 93 20 137/85 94 07/17/16 07:48 97.4 89 20 154/103 94 07/17/16 00:27 98.8 68 18 125/90 98 Result Diagram: 07/16/16 0357 07/17/16 0550 Imaging Last Impressions Myocardial Perfusion Scan Nuc Med 07/17/16 0700 Signed Impressions: Service Date/Time: Sunday, July 17, 2016 11:07 - CONCLUSION: Markedly distended and hypokinetic left ventricle. Calculated ejection fraction substantially abnormal at 19%%. No stress-induced ischemia seen. RISK CATEGORY: Intermediate Ortega Zayas MD Chest X-Ray 07/15/16 1733 Signed Impressions: Service Date/Time: June 17:42 - CONCLUSION: Cardiomegaly Ortega Carrion MD Objective Remarks GENERAL: AOx3, NAD. SKIN: Warm and dry. HEAD: Normocephalic. EYES: No scleral icterus. No injection or drainage. NECK: Supple, trachea midline. No JVD or lymphadenopathy. CARDIOVASCULAR: Regular rate and rhythm without murmurs, gallops, or rubs. RESPIRATORY: Breath sounds equal bilaterally. No accessory muscle use. GASTROINTESTINAL: Abdomen soft, non-tender, nondistended. MUSCULOSKELETAL: No cyanosis. No edema in lower ext. BACK: Nontender without obvious deformity. No CVA tenderness. Procedures None. A/P Problem List: (1) CHF (congestive heart failure) ICD Code: I50.9 Status: Acute (2) Hypokalemia ICD Code: E87.6 Status: Acute (3) HTN (hypertension) ICD Code: I10 Status: Acute (4) Tobacco abuse ICD Code: Z72.0 Status: Acute Assessment and Plan 55-year-old female with a PMH of HTN who presents with progressive SOB, lower ext edema. New onset CHF: No prior history. BNP 556, 724. CXR w/ cardiomegaly, no definite edema, personally reviewed on 07/16/2016. - Troponin negative 3. EKG w/ no acute findings. - echocardiogram shows EF 35-40%. - Appreciate Cardiology input. Continue Lasix 20mg IV BID. - Continue Lisinopril 5mg Qday, Carvedilol 6.25mg Q12hrs, Aspirin 81mg Hypokalemia: K+ 2.8, s/p oral replacement in the ED. K+ improved to 3.3, Mg improved to 1.8. - Continue KCL 20meq Qday. Hypertension - currently controlled. Continue BB, LISA inhibitor. Full code. SCDs, Ambulation. Likely discharge on 07/18/2016. Carlos Loja DO Jul 17, 2016 21:28
[2016-07-18 04:31] VITALS: BP 146/96; PULSE 80; RESP 18; TEMP 98.8; O2SAT 98
[2016-07-18 08:00] VITALS: PULSE 88
[2016-07-18] MEDS ORDERED: ASPI81TA11 PO (08:13)
[2016-07-18] MEDS ORDERED: LISI10TA3 PO (08:13)
[2016-07-18] MEDS ORDERED: CARV6.25 PO (08:13)
[2016-07-18] MEDS ORDERED: FURO1TAB62 PO (08:13)
[2016-07-18 08:49] VITALS: BP 144/101; PULSE 82; RESP 20; TEMP 97.7; O2SAT 95
[2016-07-18] MEDS: FUROSEMIDE 20 MG/2 ML VIAL IV PUSH SCH (09:00)
[2016-07-18] MEDS: CARVEDILOL 6.25 MG TAB PO SCH (09:00)
[2016-07-18] MEDS: LISINOPRIL 5 MG TAB PO SCH (09:00)
[2016-07-18] MEDS ORDERED: POTASSIUM CHLORIDE 20 MEQ CONTROLLED RELEASE TAB PO SCH (09:00)
[2016-07-18] MEDS: ASPIRIN EC 81 MG TABEC PO SCH (09:00)
--- NOTE | 2016-07-18 10:56 | PD.CARD.PN ---
Subjective Subjective Remarks No chest pain, no shortness of breath Objective Medications Current Medications Medications (Trade) Dose Ordered Sig/Kellen Route Start Time Stop Time Status Last Admin (NS Flush) 2 ml UNSCH PRN FLUSH 07/15/16 21:30 (NS Flush) 2 ml BID FLUSH 07/16/16 09:00 07/17/16 21:20 (Zofran Inj) 4 mg Q6H PRN IVP 07/15/16 21:30 (Dulcolax Supp) 10 mg DAILY PRN [place] 07/15/16 21:30 (Tylenol) 650 mg Q6H PRN PO 07/15/16 21:30 ([place] 5-325 Mg) 1 tab Q4H PRN PO 07/15/16 21:30 07/16/16 06:47 ([place] 10-325 Mg) 1 tab Q4H PRN PO 07/15/16 21:30 07/17/16 21:25 (Prinivil) 5 mg DAILY PO 07/16/16 09:00 07/17/16 10:23 (Ecotrin Ec) 81 mg DAILY PO 07/16/16 09:00 07/17/16 10:22 (Lasix Inj) 20 mg DAILY IV PUSH 07/17/16 09:00 07/17/16 10:23 (KCl) 20 meq DAILY PO 07/18/16 09:00 (Coreg) 6.25 mg Q12HR PO 07/17/16 21:00 07/17/16 21:20 Vital Signs / I&O Vital Signs Date Time Temp Pulse Resp B/P Pulse Ox O2 Delivery O2 Flow Rate FiO2 07/18/16 08:49 97.7 82 20 144/101 95 07/18/16 04:31 98.8 80 18 146/96 98 07/17/16 23:52 98.7 74 21 101/83 99 07/17/16 20:03 98.0 83 21 120/75 98 07/17/16 20:00 88 07/17/16 17:23 82 07/17/16 15:45 97.6 93 20 137/85 94 I/O 07/17/16 07/17/16 07/17/16 07/18/16 07/18/16 07/18/16 07:00 15:00 23:00 07:00 15:00 23:00 Intake Total 980 ml Output Total 600 ml Balance 380 ml Intake Oral 980 ml Output Urine Total 600 ml # Voids 1 # Bowel Movements 0 Physical Exam GENERAL: NAD, AAOx3 SKIN: Warm and dry. HEAD: Atraumatic. Normocephalic. EYES: Pupils equal and round. No scleral icterus. No injection or drainage. ENT: No nasal bleeding or discharge. Mucous membranes pink and moist. NECK: Trachea midline. Minimal JVD CARDIOVASCULAR: Regular rate and rhythm. RESPIRATORY: No accessory muscle use. CTA B/L GASTROINTESTINAL: Abdomen soft, non-tender, nondistended. Hepatic and splenic margins not palpable. MUSCULOSKELETAL: Extremities without clubbing, cyanosis, or edema. No obvious deformities. NEUROLOGICAL: Awake and alert. No obvious cranial nerve deficits. Motor grossly within normal limits. Five out of 5 muscle strength in the arms and legs. Normal speech. PSYCHIATRIC: Appropriate mood and affect; insight and judgment normal. Laboratory Laboratory Tests Test 07/18/16 04:43 Potassium Level 3.9 MEQ/L Assessment and Plan Problem List: (1) CHF (congestive heart failure) (2) HTN (hypertension) (3) FORD (dyspnea on exertion) (4) Elevated brain natriuretic peptide (BNP) level (5) Tobacco abuse Assessment and Plan 1) New acute systolic heart failure, EF 35-40% 2) Appears to be dilated cardiomyopathy from long standing HTN, diagnosed with HTN 10 years ago 3) Stress test negative 4) Tobacco cessation 5) Cardiovascularly stable for discharge, ASA/Coreg/Lisinopril.... Daily weights , Lasix PRN for weight gain of 2 pounds in 24hrs or 3 pounds in 48 hours 6) Decrease salt intake Herbert Lara DO Jul 18, 2016 10:56
[2016-07-18 12:00] VITALS: BP 138/97; PULSE 0; RESP 20; TEMP 97.9; O2SAT 97
--- NOTE | 2016-08-24 01:36 | HHI.DS ---
Discharge Summary Admission Date Jul 15, 2016 at 21:33 Discharge Date: Jul 18, 2016 Admitting Diagnosis dyspnea on exertion, elevated BNP (1) CHF (congestive heart failure) ICD Code: I50.9 Diagnosis: Principal (2) Hypokalemia ICD Code: E87.6 (3) HTN (hypertension) ICD Code: I10 (4) Tobacco abuse ICD Code: Z72.0 Procedures None. Brief History - From Admission This is a 55-year-old female with a PMH of HTN who presents to the ER with complaints of SOB and nonproductive cough x1 month. Denies fever, chills or chest pain. States she only takes Lisinopril at home, but has been off meds x3 months due to financial reasons. On arrival, BP 168/104, HR 95, O2 sat 98% on RA, Afebrile. CBC essentially unremarkable. K+ 2.8. GFR 72. BNP 556. CXR with cardiomegaly. S/p K+ replacement and DuoNeb w/ some improvement in SOB. Imaging Last Impressions Myocardial Perfusion Scan Nuc Med 07/17/16 0700 Signed Impressions: Service Date/Time: Sunday, July 17, 2016 11:07 - CONCLUSION: Markedly distended and hypokinetic left ventricle. Calculated ejection fraction substantially abnormal at 19%%. No stress-induced ischemia seen. RISK CATEGORY: Intermediate Ortega Zayas MD Chest X-Ray 07/15/16 1733 Signed Impressions: Service Date/Time: June 17:42 - CONCLUSION: Cardiomegaly Ortega Carrion MD PE at Discharge GENERAL: AOx3, NAD. SKIN: Warm and dry. HEAD: Normocephalic. EYES: No scleral icterus. No injection or drainage. NECK: Supple, trachea midline. No JVD or lymphadenopathy. CARDIOVASCULAR: Regular rate and rhythm without murmurs, gallops, or rubs. RESPIRATORY: Breath sounds equal bilaterally. No accessory muscle use. GASTROINTESTINAL: Abdomen soft, non-tender, nondistended. MUSCULOSKELETAL: No cyanosis. No edema in lower ext. BACK: Nontender without obvious deformity. No CVA tenderness. Pt update on day of discharge Patient is doing well. No CP, SOB, fever, chills. Hospital Course 55-year-old female with a PMH of HTN who presents with progressive SOB, lower ext edema. New onset CHF: No prior history. BNP 556, 724. CXR w/ cardiomegaly, no definite edema, personally reviewed on 07/16/2016. - Troponin negative 3. EKG w/ no acute findings. - echocardiogram shows EF 35-40%. - Appreciate Cardiology input. Continue Lasix 20mg IV BID while in the hospital. - Continue Lisinopril 5mg Qday, Carvedilol 6.25mg Q12hrs, Aspirin 81mg - Lasix PRN for weight gain > 2lbs in 24 hrs or 3 lbs in 48 hrs. Hypokalemia: K+ 2.8, s/p oral replacement in the ED. K+ improved to 3.3, Mg improved to 1.8. - Replaced with KCL. Hypertension - currently controlled. Continue BB, LISA inhibitor. Full code. SCDs, Ambulation. After discussing with cardiology, patient was discharged home with follow up with [employer]. Pt Condition on Discharge: Good Discharge Disposition: Discharge Home Discharge Time: <= 30 minutes Discharge Instructions DIET: Follow Instructions for: Heart Healthy Diet Activities you can perform: Regular-No Restrictions Follow up Referrals: Cardiology - 2 Weeks with Herbert Lara DO PCP Follow-up - 1 Week New Medications: Furosemide (Lasix) 20 Mg Tab 20 MG PO DAILY CHF #30 Ref 0 TAB Lisinopril (Lisinopril) 10 Mg Tab 10 MG PO DAILY #[address] (Aspirin EC) 81 Mg Tabdr 81 MG PO DAILY Blood Clot Prevention #90 TAB Carvedilol (Coreg) 6.25 Mg Tab 6.25 MG PO Q12HR Heart #60 TAB Carlos Loja DO Aug 24, 2016 01:36
== END 2016-07-18 18:33 | disposition home or self-care (01) ==
LOC: NEPB 16:19 → NEDA 21:33 → NEDH 07-16 01:43 → NEPHCDU 07-16 11:39
PROVIDERS: ADMIT Hospitalist; ATTEND Hospitalist
DX: I50.21 Acute systolic (congestive) heart failure (principal); I42.0 Dilated cardiomyopathy; I10 Essential (primary) hypertension; E87.6 Hypokalemia; R05 Cough; R94.31 Abnormal electrocardiogram [ECG] [EKG]; Z72.0 Tobacco use; Z91.14 Patient's other noncompliance with medication regimen
CPT/HCPCS: 71010; 78452; 80048; 80053; 80061; 82550; 83036; 83735; 83880; 84132; 84443; 84484; 85025; 93005; 93017; 93306; 94664; 99284; A9502; G0378; J1940; J2785; J3475

== ENCOUNTER → 2016-07-15 | Day surgery (SDC) | payer OTHER ==
[~2016-07-15] VITALS: Ht 172.7 cm; Wt 76.0 kg
[~2016-07-15] MED LIST: ASPI81TA11 PO; CARV6.25 PO; CHLORHEXIDINE GLUCONATE 4% SOLN 120 ML BTL TOP SCH; FURO1TAB62 PO; INSULIN HUMAN REGULAR 1,000 UNITS/10 ML VIAL SQ PRN; LACTATED RINGER'S 1000 ML IV SCH; LISI10TA3 PO; METOPROLOL TARTRATE 25 MG TAB PO PRN; SODIUM CHLORID 0.9% 500 ML IV SCH; VANCOMYCIN 1000 MG/NS 250 ML (for <70 kg) IV SCH; ceFAZolin 2 GM PREMIX 50 ML IV SCH
[2016-07-15 14:30] VITALS: BP 168/104; PULSE 95; RESP 16; TEMP 98; O2SAT 98
--- NOTE | 2016-07-16 13:39 | EKG ---
Date Performed: 07/15/2016 Time Performed: 14:24:32 PTAGE: 55 years EKG: Sinus rhythm WITH OCCASIONAL VENTRICULAR PREMATURE COMPLEXES POSSIBLE RIGHT ATRIAL ENLARGEMENT LEFT ATRIAL ENLARG EMENT LEFT ANTERIOR FASCICULAR BLOCK POSSIBLE LEFT VENTRICULAR HYPERTROPHY MODERATE T-WAVE ABNORMALIT Y, CONSIDER LATERAL ISCHEMIA MODERATE T-WAVE ABNORMALITY, CONSIDER INFERIOR ISCHEMIA POOR R WAVE PROG RESSION IN THE ANTERIOR PRECORDIUM CLINICAL CORRELATION RECOMMENDED. ABNORMAL ECG NO PREVIOUS TRACING DOCTOR: Nabil Avendano Interpretating Date/Time 07/16/2016 13:38:02
== END | disposition home or self-care (01) ==
LOC: HSDC 13:43
PROVIDERS: ATTEND Orthopaedic Surgery
DX: S52.531A Colles' fracture of right radius, initial encounter for closed fracture (principal); I49.49 Other premature depolarization; Z53.09 Procedure and treatment not carried out because of other contraindication
CPT/HCPCS: 86850; 86900; 86901; 93005; 99211; G0463